=== PATIENT | female | born 2000 | race Caucasian/White ===

== ENCOUNTER 2020-08-04 00:48 | Emergency (ER) | payer MEDICAID, OTHER ==
[~2020-08-04] VITALS: Ht 170 cm; Wt 54.4 kg
--- NOTE | 2020-08-04 01:45 | ED Abdominal Pain ---
General Chief Complaint: Female Reproductive Stated Complaint: POSS MISCARRIAGE,[id number] LAST PERIOD Nursing Triage Note: vaginal bleeding x5 days, abdominal/low back cramping today worse x2hrs. reports passing clots today. Sepsis Screen: No Definite Risk Source of Information: Patient Exam Limitations: No Limitations History of Present Illness Date Seen by Provider: Aug 04, 2020 Time Seen by Provider: 01:30 Initial Comments Patient is a 20-year-old female who presents to the emergency department today with a chief complaint of pelvic cramping and vaginal bleeding. Patient's last menstrual cycle was 05/02/2020 which places her at 13 weeks and 3 days gestation. Patient states that she has had some vaginal spotting over the course of the last several days. She states this morning she woke up with increased cramping and passing "clots". Patient states that she noticed this after intercourse this evening as well. Denies any dysuria, urgency or frequency. No recent illnesses. This is her first . She is getting her care [facility] savannah Jaffe. All other review of systems reviewed and negative except as stated. Timing/Duration: 1-3 Hours Severity/Quality: Moderate Location: Suprapubic Radiation: No Radiation Activities at Onset: Rest Associated Symptoms: No Nausea/Vomiting Allergies and Home Medications Allergies Coded Allergies: No Known Drug Allergies (Unverified , 08/04/20) Patient Home Medication List Home Medication List Reviewed: Yes Review of Systems Review of Systems Constitutional: see HPI EENTM: No Symptoms Reported Respiratory: No Symptoms Reported Cardiovascular: No Symptoms Reported Gastrointestinal: Other (cramping) Genitourinary: Other (vaginal bleeding) Musculoskeletal: no symptoms reported Skin: no symptoms reported Psychiatric/Neurological: No Symptoms Reported Past Pqeazhv-Iwdgjd-Cfuali Hx Patient Social History Alcohol Use: Denies Use Smoking Status: Never a Smoker 2nd Hand Smoke Exposure: No Recent Infectious Disease Expo: No Recent Hopitalizations: No Immunizations Up To Date Tetanus Booster (TDap): Unknown PED Vaccines UTD: Yes Seasonal Allergies Seasonal Allergies: No Past Medical History Surgeries: No Respiratory: No Cardiac: No Neurological: No : Yes Last Menstrual Period: May 09, 2020 Genitourinary: No Gastrointestinal: No Musculoskeletal: No Endocrine: No HEENT: No Cancer: No Psychosocial: No Integumentary: No Blood Disorders: No Physical Exam Vital Signs Vital Signs - First Documented 08/04/20 01:05 Temp 36.6 Pulse 88 Resp 18 B/P (MAP) 117/76 (90) Pulse Ox 98 O2 Delivery Room Air Capillary Refill : Less Than 3 Seconds Height/Weight/BMI Height: '" Weight: lbs. oz. kg; 18.00 BMI Method: General Appearance: WD/WN, no apparent distress HEENT: PERRL/EOMI Respiratory: lungs clear, normal breath sounds, no respiratory distress, no accessory muscle use Cardiovascular: regular rate, rhythm Gastrointestinal: non tender, soft, other (mild suprapubic tenderness) Extremities: normal inspection, no pedal edema, no calf tenderness Pelvic: normal external exam, normal adnexa, no cerv. motion tender, vaginal bleeding (minimal), other (Os Closed) Neurologic/Psychiatric: alert, normal mood/affect, oriented x 3 Skin: normal color, warm/dry Progress/Results/Core Measures Results/Orders Lab Results Laboratory Tests Test 08/04/20 02:00 Range/Units White Blood Count 8.3 4.3-11.0 10^3/uL Red Blood Count 3.90 3.80-5.11 10^6/uL Hemoglobin 12.5 11.5-16.0 g/dL Hematocrit 37 35-52 % Mean Corpuscular Volume 94 80-99 fL Mean Corpuscular Hemoglobin 32 25-34 pg Mean Corpuscular Hemoglobin Concent 34 32-36 g/dL Red Cell Distribution Width 12.2 10.0-14.5 % Platelet Count 197 130-400 10^3/uL Mean Platelet Volume 9.8 9.0-12.2 fL Immature Granulocyte % (Auto) 0 % Neutrophils (%) (Auto) 54 42-75 % Lymphocytes (%) (Auto) 37 12-44 % Monocytes (%) (Auto) 7 0-12 % Eosinophils (%) (Auto) 1 0-10 % Basophils (%) (Auto) 1 0-10 % Neutrophils # (Auto) 4.5 1.8-7.8 10^3/uL Lymphocytes # (Auto) 3.1 1.0-4.0 10^3/uL Monocytes # (Auto) 0.6 0.0-1.0 10^3/uL Eosinophils # (Auto) 0.1 0.0-0.3 10^3/uL Basophils # (Auto) 0.0 0.0-0.1 10^3/uL Immature Granulocyte # (Auto) 0.0 0.0-0.1 10^3/uL Urine Color YELLOW Urine Clarity SL CLOUDY Urine pH 6.5 5-9 Urine Specific [place] 1.010 L 1.016-1.022 Urine Protein NEGATIVE NEGATIVE Urine Glucose (UA) NEGATIVE NEGATIVE Urine Ketones NEGATIVE NEGATIVE Urine Nitrite NEGATIVE NEGATIVE Urine Bilirubin NEGATIVE NEGATIVE Urine Urobilinogen 0.2 < = 1.0 MG/DL Urine Leukocyte Esterase NEGATIVE NEGATIVE Urine RBC (Auto) 2+ H NEGATIVE Urine RBC 2-5 H /HPF Urine WBC NONE /HPF Urine Squamous Epithelial Cells 2-5 /HPF Urine Crystals NONE /LPF Urine Bacteria NEGATIVE /HPF Urine Casts NONE /LPF Urine Mucus SMALL H /LPF Urine Culture Indicated NO Human Chorionic Gonadotropin, Quant 666 H <5 MIU/ML My Orders Orders - ENRIQUE ALEXANDER MD Cbc With Automated Diff (08/04/20 01:45) Hcg,Quantitative (08/04/20 01:45) Ua Culture If Indicated (08/04/20 01:45) Abo Rh Type (08/04/20 01:45) Acetaminophen Tablet (Tylenol Tablet) (08/04/20 02:30) Medications Given in ED Current Medications Medications Dose Ordered Sig/Debbie Route Start Time Stop Time Status Last Admin Dose Admin Acetaminophen 1,000 mg ONCE ONCE PO 08/04/20 02:30 08/04/20 02:31 DC 08/04/20 02:21 1,000 MG Vital Signs/I&O 08/04/20 08/04/20 01:05 02:21 Temp 36.6 36.6 Pulse 88 Resp 18 B/P (MAP) 117/76 (90) Pulse Ox 98 O2 Delivery Room Air Blood Pressure Mean: 90 Departure Impression Primary Impression: Threatened miscarriage in early Disposition: 01 HOME, SELF-CARE Condition: Stable Departure-Patient Inst. Decision time for Depature: 02:57 Referrals: CHARLEY JAFFE MD (PCP) Primary Care Physician Patient Instructions: Threatened Miscarriage (DC) Add. Discharge Instructions: Drink plenty of fluids to stay well-hydrated. You can take [id number] Tylenol extra strength 2 tablets every 4-6 hours as needed for cramping. Please call the radiology office this morning between 7 and 730 to arrange for a pelvic ultrasound at 9:00 this morning The phone number is [phone] You will need a repeat hormone level done on Friday the . You have an order sheet for this for the lab work. Return to the emergency room for any heavy vaginal bleeding, severe pelvic cramping or any other emergent concerning symptoms Please call and follow-up with Dr. Jaffe on Friday. Copy Copies To 1: CHARLEY JAFFE MD, KATHRYN M MD Aug 04, 2020 01:45
[2020-08-04 02:08] LABS: BILIRUBIN,URINE NEGATIVE (NEGATIVE); CLARITY,URINE SL CLOUDY; COLOR,URINE YELLOW; GLUCOSE, URINE (UA) NEGATIVE (NEGATIVE); KETONES,URINE NEGATIVE (NEGATIVE); LEUKOCYTE ESTERASE ,URINE NEGATIVE (NEGATIVE); NITRITE,URINE NEGATIVE (NEGATIVE); PH,URINE 6.5 (5-9); PROTEIN,URINE NEGATIVE (NEGATIVE)
[2020-08-04 02:09] LABS: BASOPHILS % (AUTO) 1 % (0-10); EOSINOPHILS # (AUTO) 0.1 10^3/uL (0.0-0.3); EOSINOPHILS % (AUTO) 1 % (0-10); HEMATOCRIT 37 % (35-52); HEMOGLOBIN 12.5 g/dL (11.5-16.0); LYMPHOCYTES # (AUTO) 3.1 10^3/uL (1.0-4.0); LYMPHOCYTES % (AUTO) 37 % (12-44); MEAN CORPUSCULAR HEMOGLOBIN 32 pg (25-34); MEAN CORPUSCULAR HGB CONC 34 g/dL (32-36); MEAN CORPUSCULAR VOLUME 94 fL (80-99); MEAN PLATELET VOLUME 9.8 fL (9.0-12.2); MONOCYTES # (AUTO) 0.6 10^3/uL (0.0-1.0); MONOCYTES % (AUTO) 7 % (0-12); NEUTROPHILS # (AUTO) 4.5 10^3/uL (1.8-7.8); NEUTROPHILS % (AUTO) 54 % (42-75); PLATELET COUNT 197 10^3/uL (130-400); WHITE BLOOD COUNT 8.3 10^3/uL (4.3-11.0)
[2020-08-04] MEDS ORDERED: ACETAMINOPHEN 500 MG TAB (TYLENOL) PO ONE (02:30)
[2020-08-04 02:48] LABS: BACTERIA,URINE NEGATIVE /HPF
[2020-08-04 03:02] VITALS: BP 116/71
== END 2020-08-04 03:04 | disposition home or self-care (01) ==
LOC: ER 00:54
DX: O20.0 Threatened abortion (principal); Z3A.13 13 weeks gestation of pregnancy
CPT/HCPCS: 36415; 81000; 84702; 85025; 86900; 86901

== ENCOUNTER → 2020-08-04 | Outpatient (CLI) | payer MEDICAID ==
--- NOTE | 2020-08-04 16:27 | Diagnostic Imaging Report ---
INDICATION: Threatened AB. Vaginal bleeding. FINDINGS: There is no evidence of intrauterine gestational sac. There is marked thickening of the endometrium measuring 1.4 cm which is rather uniform in appearance. There are no myometrial masses. Right ovary measures 3 x 2 x 1.7 cm. Left ovary measures 2.6 x 2.1 x 1.4 cm. No adnexal masses. There is normal blood flow to both ovaries. There is no free fluid. IMPRESSION: 1. Endometrial thickening with no evidence of intrauterine or ectopic at this time. Dictated by: Dictated on workstation # [id number]
== END ==
LOC: RAD 10:34
PROVIDERS: ATTEND Emergency Medicine
DX: O20.0 Threatened abortion (principal); R93.89 Abnormal findings on diagnostic imaging of other specified body structures
CPT/HCPCS: 36415; 76801; 76817; 84702